=== PATIENT | female | born 2000 | race Caucasian/White ===

== ENCOUNTER 2019-07-04 18:39 | Emergency (ER) | payer OTHER ==
[~2019-07-04] VITALS: Ht 160 cm; Wt 62.3 kg
[2019-07-04 18:46] VITALS: BP 134/90; TEMP 99
[2019-07-04 20:53] VITALS: PULSE 85
== END 2019-07-04 20:55 | disposition home or self-care (01) ==
LOC: COL.ER 18:39
DX: M65.842 Other synovitis and tenosynovitis, left hand (principal); F12.90 Cannabis use, unspecified, uncomplicated; F17.200 Nicotine dependence, unspecified, uncomplicated